=== PATIENT | male | born 1975 | race Caucasian/White ===

== ENCOUNTER 2017-09-05 09:26 | Emergency (ER) | payer BC ==
[~2017-09-05] VITALS: Ht 175.3 cm; Wt 77.3 kg
[2017-09-05 09:33] VITALS: BP 106/60; PULSE 85; TEMP 97.4
[2017-09-05] MEDS ORDERED: TOPAMAX 25MG25 M1 PO (09:37)
[2017-09-05] MEDS ORDERED: LIPITOR20 MG PO (09:38)
[2017-09-05 10:32] LABS: STREP SCREEN NEGATIVE
[2017-09-05 10:36] LABS: INFLUENZA A NEGATIVE; INFLUENZA B NEGATIVE
== END 2017-09-05 11:00 | disposition home or self-care (01) ==
LOC: COL.ER 09:26
PROVIDERS: Physician Assistant
DX: J06.9 Acute upper respiratory infection, unspecified (principal); F17.200 Nicotine dependence, unspecified, uncomplicated
CPT/HCPCS: J1885